=== PATIENT | female | born 1980 | race Caucasian/White ===

== ENCOUNTER 2017-03-04 08:48 | Emergency (ER) | payer BC, MEDICAID, OTHER ==
[~2017-03-04] VITALS: Ht 162.6 cm; Wt 86.5 kg
[~2017-03-04 08:48] MED LIST: CETI10CA PO; FAMO-18 PO; GUAI118L94 PO; GUAI120S26 PO; HYDR-3498 PO; IBUP-1542 PO; LORA-186 PO; MAG355OR15 PO
[2017-03-04 08:52] VITALS: Ht 162.6 cm; Wt 86.5 kg
[2017-03-04] MEDS ORDERED: ONDANSETRON 4 MG INJ IV STA (09:54)
[2017-03-04] MEDS ORDERED: SOD CHLORIDE 0.9% 1,000 ML IV STA (09:54)
[2017-03-04 10:39] LABS: ADD SCAN DIFF NO
[2017-03-04 11:10] LABS: ALBUMIN 4.2 g/dl (3.3-4.9); ALBUMIN/GLOBULIN RATIO 1.27; BILIRUBIN,INDIRECT 0.3 mg/dl (0-1.1); BILIRUBIN,TOTAL 0.3 mg/dl (0.2-1.3); CALCIUM 8.7 mg/dl (8.4-10.2); CREATININE 0.61 mg/dl (0.44-1.00); POTASSIUM 4.3 mmol/L (3.5-5.1); TOTAL PROTEIN 7.5 g/dl (6.1-8.1)
[2017-03-04 11:15] LABS: URINE BLOOD (Dip) POC Trace-lysed (NEGATIVE)
[2017-03-04 11:53] LABS: BASOPHIL # 0.1 10^3/ul (0.0-0.1); BASOPHILS % 0.6 % (0.0-2.0); EOSINOPHILS # 0.2 10^3/ul (0.0-0.5); EOSINOPHILS % 2.1 % (0.0-7.0); HEMATOCRIT 39.8 % (37.0-47.0); HEMOGLOBIN 12.8 g/dl (12.0-16.0); LYMPHOCYTES # 2.7 10^3/ul (0.8-2.9); LYMPHOCYTES % 31.4 % (15.0-51.0); MEAN CORPUSCULAR HEMOGLOBIN 29.7 pg (29.0-33.0); MEAN CORPUSCULAR HGB CONC 32.2 g/dl (32.0-37.0); MEAN CORPUSCULAR VOLUME 92.3 fl (82.0-101.0); MEAN PLATELET VOLUME 10.8 fl (7.4-10.4); MONOCYTE # 0.6 10^3/ul (0.3-0.9); MONOCYTES % 6.8 % (0.0-11.0); NEUTROPHIL # 5.1 10^3/ul (1.6-7.5); NEUTROPHILS % 58.8 % (39.0-77.0); PLATELET COUNT 331 10^3/UL (140-415); RED BLOOD COUNT 4.31 10^6/ul (4.20-5.40); RED CELL DISTRIBUTION WIDTH 13.9 % (11.5-14.5); WHITE BLOOD COUNT 8.7 10^3/ul (4.8-10.8)
--- NOTE | 2017-03-04 12:01 | ERD ---
ER Documentation Chief Complaint Date/Time DATE: 03/04/17 TIME: 12:00 Chief Complaint vomiting x 3 days HPI This a 37-year-old female who presents to the emergency department today complaining of vomiting for the past 3 days. States that she is having difficulty keeping anything down. States she had some mild crampy pain. Denies any diarrhea, fevers or chills. Denies any dysuria. States she smokes cigarettes. Denies any marijuana use. ROS All systems reviewed and are negative except as per history of present illness. Medications Home Meds Active Scripts Electrolyte,Oral (Pedialyte) 1,000 Ml Solution, 100 ML PO Q6 Y for VOMITTING, # 1000 ML Prov:JASON WATERS PA-C 03/04/17 Dicyclomine Hcl* (Bentyl*) 10 Mg Capsule, 10 MG PO QID, #30 CAP Prov:JASON WATERS PA-C 03/04/17 Famotidine* (Pepcid*) 20 Mg Tablet, 20 MG PO BID for 10 Days, TAB Prov:JASON WATERS PA-C 03/04/17 Ondansetron Hcl* (Zofran*) 4 Mg Tablet, 4 MG PO Q6H for NAUSEA AND/OR VOMITING, #30 TAB Prov:JASON WATERS PA-C 03/04/17 Cetirizine Hcl* (Zyrtec*) 10 Mg Capsule, 10 MG PO DAILY, #30 TAB.CHEW Prov:SABRINA SPARKS NP 11/14/15 Ibuprofen* (Motrin*) 600 Mg Tab, 600 MG PO Q6H Y for PAIN AND OR ELEVATED TEMP, #30 TAB Prov:SABRNIA SPARKS NP 11/14/15 Ojrlpurzxuw-E-Dzsfxlxwda Hb* (Guaifenesin* DM Syrup) 120 Ml Syrup, 10 ML PO Q4H Y for COUGH, #120 ML Prov:SABRINA SPARKS NP 11/14/15 Hydrocodone Bit-Acetaminophen* ([place]*) 5-325 Mg Tab, 1 TAB PO Q4H Y for pa, # 10 TAB Prov:SABRINA SPARKS NP 08/30/15 Ibuprofen* (Ibuprofen*) 600 Mg Tablet, 600 MG PO Q6H Y for pa, #30 TAB Prov:ANELALISSONSABRINA CROWDER DIRECTOR MEDICAL 08/30/15 Loratadine* (Claritin*) 10 Mg Tablet, 10 MG PO DAILY, #30 TAB Prov:BRIDGERSABRINA DIRECTOR MEDICAL 08/30/15 Guaifenesin-Codeine Phosphate* (Guaifenesin* with Codeine Liq) 120 Ml Liquid, 5 ML PO Q4H for COUGH, #60 ML Prov:SABRINA SPARKS DIRECTOR MEDICAL 08/30/15 Famotidine* (Pepcid*) 20 Mg Tablet, 20 MG PO BID, #30 TAB Prov:EBER DOAN MD 07/22/15 Mag Hydrox/Al Hydrox/Simeth (Maalox Max Strength Susp) 769 Ml Oral.susp, 2 TSP PO TID, #24 OZ Prov:EBER DOAN MD 07/22/15 Reported Medications [none] Unknown Strength No Conflict Check 11/14/15 [none] Unknown Strength No Conflict Check 08/30/15 Allergies Allergies: Coded Allergies: No Known Allergy (Unverified , 08/30/15) PMhx/Soc History of Surgery: Yes (Laparoscopic uterine surgery) Anesthesia Reaction: No Hx Neurological Disorder: No Hx Respiratory Disorders: No Hx Cardiac Disorders: No Hx Psychiatric Problems: No Hx Miscellaneous Medical Probl: No Hx Alcohol Use: Yes (social) Hx Substance Use: No Hx Tobacco Use: Yes Smoking Status: Current every day smoker Physical Exam Vitals Vital Signs Date Time Temp Pulse Resp B/P Pulse Ox O2 Delivery O2 Flow Rate FiO2 03/04/17 08:52 98.2 83 18 127/70 100 Physical Exam Const: Pleasant, no acute distress Head: Atraumatic Eyes: Normal Conjunctiva ENT: Normal External Ears, Nose and Mouth. Neck: Full range of motion..~ No meningismus. Resp: Clear to auscultation bilaterally Cardio: Regular rate and rhythm, no murmurs Abd: Soft, mild epigastric tenderness, non distended. Normal bowel sounds. No lower abdominal pain. Skin: No petechiae or rashes Neur: Awake and alert Psych: Normal Mood and Affect Result Diagram: 03/04/17 1000 03/04/17 1000 Results 24 hrs Laboratory Tests Test 03/04/17 10:00 5/16/17 11:17 White Blood Count 8.710^3/ul Red Blood Count 4.3110^6/ul Hemoglobin 12.8g/dl Hematocrit 39.8% Mean Corpuscular Volume 92.3fl Mean Corpuscular Hemoglobin 29.7pg Mean Corpuscular Hemoglobin Concent 32.2g/dl Red Cell Distribution Width 13.9% Platelet Count 90448^3/UL Mean Platelet Volume 10.8fl Neutrophils % 58.8% Lymphocytes % 31.4% Monocytes % 6.8% Eosinophils % 2.1% Basophils % 0.6% Nucleated Red Blood Cells % 0.0/100WBC Neutrophils # 5.110^3/ul Lymphocytes # 2.710^3/ul Monocytes # 0.610^3/ul Eosinophils # 0.210^3/ul Basophils # 0.110^3/ul Nucleated Red Blood Cells # 0.010^3/ul Sodium Level 142mmol/L Potassium Level 4.3mmol/L Chloride Level 107mmol/L Carbon Dioxide Level 26mmol/L Anion Gap 13 Blood Urea Nitrogen 12mg/dl Creatinine 0.61mg/dl Glucose Level 98mg/dl Calcium Level 8.7mg/dl Total Bilirubin 0.3mg/dl Direct Bilirubin 0.00mg/dl Indirect Bilirubin 0.3mg/dl Aspartate Amino Transf (AST/SGOT) 27IU/L Alanine Aminotransferase (ALT/SGPT) 32IU/L Alkaline Phosphatase 60IU/L Total Protein 7.5g/dl Albumin 4.2g/dl Globulin 3.30g/dl Albumin/Globulin Ratio 1.27 Lipase 99U/L Bedside Urine pH (LAB) 7.0 Bedside Urine Protein (LAB) Negative Bedside Urine Glucose (UA) Negative Bedside Urine Ketones (LAB) Negative Bedside Urine Blood Trace-lysed Bedside Urine Nitrite (LAB) Negative Bedside Urine Leukocyte Esterase (L Negative Current Medications Medications (Trade) Dose Ordered Sig/Rom Route PRN Reason Start Time Stop Time Status Last Admin Dose Admin Sodium Chloride (NS) 1,000 ml @ 1,000 mls/hr Q1H STAT IV 03/04/17 09:54 03/04/17 10:53 DC 03/04/17 09:59 Ondansetron HCl (Zofran Inj) 4 mg ONCE STAT IV 03/04/17 09:54 03/04/17 09:56 DC 03/04/17 09:59 Procedures/MDM This is a 37-year-old female presents to the emergency department today complaining of vomiting for the past 3 days and difficulty keeping anything down. Given this I did obtain laboratory work as well as a UA. Laboratory work shows no elevated white blood cell count. She is not anemic. Platelets are within normal limits. Electrolytes are within normal limits. Glucose within normal limits. Liver functions normal limits. Lipase within normal limits UA is negative for infection test is negative Patient symptoms at this time is consistent with vomiting. She has mild epigastric pain however low suspicion for acute surgical abdomen, pancreatitis or bacterial cause of vomiting. No evidence to suggest dehydration. Patient was given IV fluids and Zofran here in the emergency department and reported feeling better. She is not actively vomiting. She is sitting up and in no acute distress. Patient was given a prescription for Bentyl, Zofran, Pedialyte. At this time the patient is stable for discharge and outpatient management. Patient should follow up with their PCP in the next 1-2 days. They may return to the emergency department sooner for any persistent or worsening of symptoms. Patient understood and agreed with the plan. Departure Diagnosis: Primary Impression: Nausea and vomiting Vomiting type: unspecified Vomiting Intractability: non-intractable Qualified Code: R11.2 - Non-intractable vomiting with nausea, unspecified vomiting type Condition: JASON Vanegas PA-C March 04, 2017 12:01
[2017-03-04] MEDS ORDERED: ONDA4TAB8 PO (12:03)
[2017-03-04] MEDS ORDERED: FAMO-18 PO (12:03)
[2017-03-04] MEDS ORDERED: DICY10CA60 PO (12:04)
[2017-03-04] MEDS ORDERED: ELEC100080 PO (12:04)
== END 2017-03-04 12:17 | disposition home or self-care (01) ==
LOC: FTE 08:48
DX: R11.2 Nausea with vomiting, unspecified (principal); F17.210 Nicotine dependence, cigarettes, uncomplicated
CPT/HCPCS: 80053; 81003; 83690; 85025; 96361; 96374; J2405; J7030; Z7502

== ENCOUNTER 2017-05-20 18:16 | Inpatient (IN) | payer OTHER ==
[~2017-05-20] VITALS: Ht 165.1 cm; Wt 82.7 kg
[~2017-05-20 18:16] MED LIST changes: +DICY10CA60 PO; +ELEC100080 PO; -FAMO-18 PO; +FAMO-96 PO; +ONDA4TAB8 PO
[2017-05-20] MEDS ORDERED: ONDANSETRON 4 MG INJ IV STA ×2 (18:42→20:14)
[2017-05-20] MEDS ORDERED: HYDROmorphONE 1 MG/ML SYG IV STA ×2 (18:42→20:14)
[2017-05-20] MEDS ORDERED: METHYLPREDNISOLONE 125 MG INJ IV ONE (19:00)
[2017-05-20] MEDS ORDERED: CLINDAMYCIN 900 MG INJ IV ONE (19:00)
[2017-05-20] MEDS ORDERED: CLINDAMYCIN 900 MG INJ IM ONE (19:00)
[2017-05-20] MEDS ORDERED: CLINDAMYCIN 900 MG/D5W (PMX) 50 ML IVPB ONE (19:30)
[2017-05-20 19:40] LABS: CALCIUM 9.3 mg/dl (8.4-10.2); CREATININE 0.71 mg/dl (0.44-1.00); POTASSIUM 3.7 mmol/L (3.5-5.1)
[2017-05-20] MEDS ORDERED: IOHEXOL 300MG/ML 150 ML BTL ONE (19:49)
[2017-05-20] MEDS ORDERED: SOD CHLORIDE 0.9% 100 ML ONE (19:49)
[2017-05-20] MEDS: ACETAMINOPHEN 500 MG TAB PO STA ×2 (20:28→20:29)
[2017-05-20] MEDS ORDERED: CEFEPIME 1GM/50 ML (PMX) 50 ML IVPB STA (20:35)
--- NOTE | 2017-05-20 20:38 | RADRPT ---
PROCEDURE: CT Neck with contrast. CLINICAL INDICATION: Fever, left neck pain. TECHNIQUE: The study was performed utilizing a multislice multidetector CT scanner. Direct spiral 1 mm axial sections were obtained through the neck with the use of with the use of intravenous contr ast material. 100 cc of Omnipaque 300 was utilized. Coronal and sagittal as well as maximal intens ity projection reformations were obtained. The images were reviewed on a PACS workstation. RADIATION DOSE: CTDIvol: 90.8 mGyDLP: 282.5 mGy-cm COMPARISON: No prior studies are available for comparison. FINDINGS: There is a moderate amount of soft tissue swelling in the left supraclavicular region, extending int o the retrosternal region (axial series image [id number]). The soft tissue swelling displaces the left s ubclavian artery posteriorly. There is adequate contrast opacification seen in the descending left internal jugular vein, with focal area of decreased opacification (axial series image 70), with mini mal opacification seen in the left brachiocephalic vein. The superior vena cava and right brachioce phalic vein demonstrates normal opacification. The nasopharynx, oropharynx and hypopharynx are norm al in appearance. There is no tongue base mass. The larynx is normal in appearance. The parotid, submandibular and thyroid glands are normal in appearance. No enlarged cervical lymph nodes are see n. The vascular structures are normal. The paranasal sinuses and orbits are normal. Limited visua lization of the intracranial contents is unremarkable. There are mild degenerative changes of the cervical spine. The lung apices are normal in appearance. IMPRESSION: 1. Moderate soft tissue swelling in the left supraclavicular region, with possible thrombus involvi ng the left brachiocephalic/proximal subclavian vein. Ultrasound of the left upper extremity venous structures is recommended for further evaluation. Given the adjacent soft tissue swelling surround ing the vein, other etiologies including thrombophlebitis or soft tissue infection are not excluded. 2. The remaining neck soft tissues unremarkable. The above findings were discussed with Patient's physician Treva Gutierres by telephone on 2016 8:34:46 PM. RPTAT: HGAS .Igor Rossi MD, MD Date Time Electronically viewed and signed by .Igor Rossi MD, MD on 05/20/2017 20:37 .S/
--- NOTE | 2017-05-20 20:55 | ERA ---
ER Documentation Chief Complaint Date/Time DATE: 05/20/17 TIME: 20:51 Chief [address]K PAIN [facility] Is a 37-year-old female who states she gradually got a worsening pain in her left neck yesterday and this morning woke up with fever and severe left neck pain the neck pain is described as sharp worse with turning of the head is located along the left sternocleidomastoid area. She says she has a very slight sore throat but not significant pain and does not hurt much when she swallows. No cough runny nose headache no photophobia or stiff neck. No GI symptoms denies any trauma or headache either ROS All systems reviewed and are negative except as per history of present illness. Medications Home Meds Active Scripts Electrolyte,Oral (Pedialyte) 1,000 Ml Solution, 100 ML PO Q6 Y for VOMITTING, # 1000 ML Prov:JASON WATERS PA-C 03/04/17 Dicyclomine Hcl* (Bentyl*) 10 Mg Capsule, 10 MG PO QID, #30 CAP Prov:JASON WATERS PA-C 03/04/17 Famotidine* (Pepcid*) 20 Mg Tablet, 20 MG PO BID for 10 Days, TAB Prov:JASON WATERS PA-C 03/04/17 Ondansetron Hcl* (Zofran*) 4 Mg Tablet, 4 MG PO Q6H for NAUSEA AND/OR VOMITING, #30 TAB Prov:JASON WATERS PA-C 03/04/17 Cetirizine Hcl* (Zyrtec*) 10 Mg Capsule, 10 MG PO DAILY, #30 TAB.CHEW Prov:SABRINA SPARKS NP 11/14/15 Ibuprofen* (Motrin*) 600 Mg Tab, 600 MG PO Q6H Y for PAIN AND OR ELEVATED TEMP, #30 TAB Prov:SABRINA SPARKS NP 11/14/15 Jxczykwccni-N-Ezxuimufco Hb* (Guaifenesin* DM Syrup) 120 Ml Syrup, 10 ML PO Q4H Y for COUGH, #120 ML Prov:SABRINA SPARKS NP 11/14/15 Hydrocodone Bit-Acetaminophen* ([place]*) 5-325 Mg Tab, 1 TAB PO Q4H Y for pa, # 10 TAB Prov:SABRINA SPARKS NP 08/30/15 Ibuprofen* (Ibuprofen*) 600 Mg Tablet, 600 MG PO Q6H Y for pa, #30 TAB Prov:SABRINA SPARKS VENEER TAPER 08/30/15 Loratadine* (Claritin*) 10 Mg Tablet, 10 MG PO DAILY, #30 TAB Prov:SABRINA SPARKS VENEER TAPER 08/30/15 Guaifenesin-Codeine Phosphate* (Guaifenesin* with Codeine Liq) 120 Ml Liquid, 5 ML PO Q4H for COUGH, #60 ML Prov:SABRINA SPARKS NP 08/30/15 Famotidine* (Pepcid*) 20 Mg Tablet, 20 MG PO BID, #30 TAB Prov:EBER DOAN MD 07/22/15 Mag Hydrox/Al Hydrox/Simeth (Maalox Max Strength Susp) 769 Ml Oral.susp, 2 TSP PO TID, #24 OZ Prov:EBER DOAN MD 07/22/15 Reported Medications [none] Unknown Strength No Conflict Check 11/14/15 [none] Unknown Strength No Conflict Check 08/30/15 Allergies Allergies: Coded Allergies: No Known Allergy (Unverified , 08/30/15) PMhx/Soc History of Surgery: Yes (Laparoscopic uterine surgery) Anesthesia Reaction: No Hx Neurological Disorder: No Hx Respiratory Disorders: No Hx Cardiac Disorders: No Hx Psychiatric Problems: No Hx Miscellaneous Medical Probl: No Hx Alcohol Use: Yes (social) Hx Substance Use: No Hx Tobacco Use: Yes Smoking Status: Heavy tobacco smoker FmHx Family History: No coronary disease Physical Exam Vitals Vital Signs Date Time Temp Pulse Resp B/P Pulse Ox O2 Delivery O2 Flow Rate FiO2 05/20/17 18:17 101.3 95 20 138/77 99 Physical Exam Const: [Well-developed, well-nourished] Head: [Atraumatic, normocephalic] Eyes: [Normal Conjunctiva, PERRLA, EOMI, normal sclera, no nystagmus] ENT: [Normal External Ears, Nose and Mouth, moist mucus membranes there is only slight erythema to the tonsillar pillars no exudate.] Neck: [Decreased range of motion secondary. No meningismus, no lymphadenopathy, there is extreme tenderness to the left sternocleidomastoid area in the left supra and infraclavicular region] Resp: [Clear to auscultation bilaterally, no wheezing, rhonchi, rales] Cardio: [Regular rate and rhythm, no murmurs, S1 S2 present] Abd: [Soft, non tender x 4, non distended. Normal bowel sounds, no guarding or rebound, no pulsitile abdominal masses or bruits] Skin: [No petechiae or rashes, no ecchymosis , no maculopapular rash] Back: [No midline or flank tenderness] Ext: [No cyanosis, or edema, FROM x 4, normal inspection, neurovascularly intact x 4] Neur: [Awake and alert, STR 5/5 x 4, sensation intact x 4, no focal findings, cerebellum intact] Psych: [Normal Mood and Affect] Result Diagram: 05/20/17 1900 Results 24 hrs Laboratory Tests Test 05/20/17 19:00 Sodium Level 144mmol/L Potassium Level 3.7mmol/L Chloride Level 100mmol/L Carbon Dioxide Level 27mmol/L Anion Gap 21 Blood Urea Nitrogen 12mg/dl Creatinine 0.71mg/dl Glucose Level 83mg/dl Calcium Level 9.3mg/dl Serum HCG, Qualitative NEGATIVE Current Medications Medications (Trade) Dose Ordered Sig/Rom Route PRN Reason Start Time Stop Time Status Last Admin Dose Admin Clindamycin Phosphate (Cleocin) 900 mg ONCE ONCE IM 05/20/17 19:00 05/20/17 19:01 Cancel Hydromorphone HCl (Dilaudid) 1 mg ONCE STAT IV 05/20/17 18:42 05/20/17 18:44 DC 05/20/17 19:07 Ondansetron HCl (Zofran Inj) 4 mg ONCE STAT IV 05/20/17 18:42 05/20/17 18:44 DC 05/20/17 19:07 Methylprednisolone Sodium Succinate (Solu-Medrol) 125 mg ONCE ONCE IV 05/20/17 19:00 05/20/17 19:01 DC 05/20/17 19:07 Clindamycin Phosphate 900 mg 900 mg ONCE ONCE IV 05/20/17 19:00 05/20/17 19:01 DC Clindamycin HCl/ Dextrose (Cleocin 900 Mg/ D5W (Pmx)) 50 ml @ 50 mls/hr ONCE ONCE IVPB 05/20/17 19:30 05/20/17 20:29 DC 05/20/17 19:42 IV Flush 10 ml 10 ml STK-MED ONCE .ROUTE 05/20/17 19:49 05/20/17 19:50 DC 05/20/17 19:59 Sodium Chloride (NS) 100 ml @ ud STK-MED ONCE .ROUTE 05/20/17 19:49 05/20/17 19:50 DC 05/20/17 19:59 Iohexol (Omnipaque 300mg/ ml) 150 ml STK-MED ONCE .ROUTE 05/20/17 19:49 05/20/17 19:50 DC 05/20/17 19:59 Hydromorphone HCl (Dilaudid) 1 mg ONCE STAT IV 05/20/17 20:14 05/20/17 20:15 DC 05/20/17 20:18 Ondansetron HCl (Zofran Inj) 4 mg ONCE STAT IV 05/20/17 20:14 05/20/17 20:15 DC 05/20/17 20:18 Acetaminophen (Tylenol Tab) 1,000 mg ONCE STAT PO 05/20/17 20:23 05/20/17 20:24 DC Enoxaparin Sodium 80 mg 80 mg ONCE SC 05/20/17 21:00 Cefepime HCl (Maxipime 1gm/50 ml (Pmx)) 50 ml @ 100 mls/hr ONCE STAT IVPB 05/20/17 20:35 05/20/17 21:04 Procedures/MDM PROCEDURE: CT Neck with contrast. CLINICAL INDICATION: Fever, left neck pain. TECHNIQUE: The study was performed utilizing a multislice multidetector CT scanner. Direct spiral 1 mm axial sections were obtained through the neck with the use of with the use of intravenous contrast material. 100 cc of Omnipaque 300 was utilized. Coronal and sagittal as well as maximal intensity projection reformations were obtained. The images were reviewed on a PACS workstation. RADIATION DOSE: CTDIvol: 90.8 mGy DLP: 282.5 mGy-cm COMPARISON: No prior studies are available for comparison. FINDINGS: There is a moderate amount of soft tissue swelling in the left supraclavicular region, extending into the retrosternal region (axial series image 62-71). The soft tissue swelling displaces the left subclavian artery posteriorly. There is adequate contrast opacification seen in the descending left internal jugular vein, with focal area of decreased opacification (axial series image 70), with minimal opacification seen in the left brachiocephalic vein. The superior vena cava and right brachiocephalic vein demonstrates normal opacification. The nasopharynx, oropharynx and hypopharynx are normal in appearance. There is no tongue base mass. The larynx is normal in appearance. The parotid, submandibular and thyroid glands are normal in appearance. No enlarged cervical lymph nodes are seen. The vascular structures are normal. The paranasal sinuses and orbits are normal. Limited visualization of the intracranial contents is unremarkable. There are mild degenerative changes of the cervical spine. The lung apices are normal in appearance. IMPRESSION: 1. Moderate soft tissue swelling in the left supraclavicular region, with possible thrombus involving the left brachiocephalic/proximal subclavian vein. Ultrasound of the left upper extremity venous structures is recommended for further evaluation. Given the adjacent soft tissue swelling surrounding the vein, other etiologies including thrombophlebitis or soft tissue infection are not excluded. 2. The remaining neck soft tissues unremarkable. The above findings were discussed with Patient's physician Treva Lindsay by telephone on 05/20/2017 8:34:46 PM. RPTAT: HGAS .Igor Rossi MD, Date Time Electronically viewed and signed by .Igor Rossi MD, MD on 05/20/2017 20: 37 .S/ CC: TREVA LINDSAY DO Patient has been given clindamycin and cefepime. Blood cultures have been drawn. She is also been on Lovenox subcu for DVT prophylaxis Getting an ultrasound of the left upper extremity including the left subclavian and brachiocephalic veins. This is not definitive will need to get MRV Patient has a fever with a clot in her left neck with significant stranding of the soft tissue this is likely consistent with a thrombophlebitis or other deep soft tissue infection. We will admit for IV antibiotic therapy and pain control Critical Care Time: 35 minutes Treatments/Evaluations: Close monitoring and treatment of unstable vital signs, cardiorespiratory, and neurologic status, while maintaining tight balance of fluid, respiratory, and cardiac interventions. This time includes discussing the case with the patient and the patient's family. This time does not include all procedures stated elsewhere in this record. This time also includes reviewing old records, labs and radiological studies. This time includes examining and re-examining the patient. Additionally, this time also includes arranging care with admitting and consulting physicians. Departure Diagnosis: Primary Impression: DVT (deep venous thrombosis) Qualified Code: I82.90 - Acute deep vein thrombosis (DVT) of non-extremity vein Additional Impression: Septic thrombophlebitis of neck Condition: Stable TREVA LINDSAY DO May 20, 2017 20:55
[2017-05-20] MEDS ORDERED: SOD CHLORIDE 0.9% 1,000 ML IV SCH (20:56)
[2017-05-20] MEDS ORDERED: ENOXAPARIN 80 MG/0.8 ML SYG SC SCH (21:00)
[2017-05-20] MEDS ORDERED: ACETAMINOPHEN 325 MG TAB PO PRN (21:00)
[2017-05-20] MEDS ORDERED: ONDANSETRON 4 MG INJ IV PRN (21:00)
--- NOTE | 2017-05-20 21:27 | RADRPT ---
PROCEDURE: Left upper extremity venous ultrasound CLINICAL INDICATION: Left arm pain and swelling. Deep venous thrombosis. TECHNIQUE: Johnson scale, color doppler, spectral doppler ultrasound imaging of the venous system of the left upper extremity. Augmentation maneuvers were utilized. COMPARISON: No prior studies are available for comparison. FINDINGS: LEFT: Internal jugular vein: Patent. Subclavian vein: Patent. Axillary vein: Patent. Brachial vein: Patent. Basilic vein: Patent. Cephalic vein: Patent. Radial vein: Patent. Ulnar vein: Patent. IMPRESSION: No evidence of a deep vein thrombosis involving the left upper extremity. RPTAT: AADD .Alan Valera MD, MD Date Time Electronically viewed and signed by .Alan Valera MD, on 05/20/2017 21:27 .B/
[2017-05-20 21:32] LABS: BASOPHILS % 0.2 % (0.0-2.0); EOSINOPHILS # 0.1 10^3/ul (0.0-0.5); EOSINOPHILS % 0.8 % (0.0-7.0); HEMATOCRIT 38.7 % (37.0-47.0); HEMOGLOBIN 12.7 g/dl (12.0-16.0); LYMPHOCYTES % 19.9 % (15.0-51.0); MEAN CORPUSCULAR HGB CONC 32.8 g/dl (32.0-37.0); MEAN CORPUSCULAR VOLUME 91.3 fl (82.0-101.0); MEAN PLATELET VOLUME 11.7 fl (7.4-10.4); MONOCYTES % 6.2 % (0.0-11.0); NEUTROPHIL # 11.1 10^3/ul (1.6-7.5); NEUTROPHILS % 72.4 % (39.0-77.0); PLATELET COUNT 333 10^3/UL (140-415); RED BLOOD COUNT 4.24 10^6/ul (4.20-5.40); RED CELL DISTRIBUTION WIDTH 15.2 % (11.5-14.5); WHITE BLOOD COUNT 15.3 10^3/ul (4.8-10.8)
[2017-05-20 21:51] VITALS: TEMP 99.3
[2017-05-20 22:15] VITALS: BP 97/51; PULSE 73; RESP 20; Ht 165.1 cm; Wt 82.7 kg
[2017-05-20 22:20] VITALS: PULSE 73
[2017-05-20 22:37] LABS: ALBUMIN 4.5 g/dl (3.3-4.9); ALBUMIN/GLOBULIN RATIO 1.28; BILIRUBIN,INDIRECT 0.5 mg/dl (0-1.1); BILIRUBIN,TOTAL 0.5 mg/dl (0.2-1.3); CALCIUM 9.3 mg/dl (8.4-10.2); CREATININE 0.69 mg/dl (0.44-1.00); POTASSIUM 3.7 mmol/L (3.5-5.1)
[2017-05-20] MEDS: morphine 4 MG/ML VIAL IV PRN (23:05)
[2017-05-21] VITALS (13 sets, daily range): BP systolic 90–116; BP diastolic 51–62; PULSE 55–74; RESP 17–19
[2017-05-21] MEDS ORDERED: ONDANSETRON 4 MG INJ IV PRN
[2017-05-21] MEDS: morphine 4 MG/ML VIAL IV PRN ×6 (03:27→23:23)
[2017-05-21 07:26] LABS: BASOPHILS % 0.1 % (0.0-2.0); HEMATOCRIT 35.8 % (37.0-47.0); HEMOGLOBIN 11.6 g/dl (12.0-16.0); LYMPHOCYTES # 1.8 10^3/ul (0.8-2.9); LYMPHOCYTES % 10.2 % (15.0-51.0); MEAN CORPUSCULAR HEMOGLOBIN 29.2 pg (29.0-33.0); MEAN CORPUSCULAR HGB CONC 32.4 g/dl (32.0-37.0); MEAN CORPUSCULAR VOLUME 90.2 fl (82.0-101.0); MEAN PLATELET VOLUME 11.1 fl (7.4-10.4); MONOCYTE # 0.5 10^3/ul (0.3-0.9); MONOCYTES % 2.7 % (0.0-11.0); NEUTROPHIL # 15.5 10^3/ul (1.6-7.5); NEUTROPHILS % 86.5 % (39.0-77.0); PLATELET COUNT 311 10^3/UL (140-415); RED BLOOD COUNT 3.97 10^6/ul (4.20-5.40); WHITE BLOOD COUNT 17.9 10^3/ul (4.8-10.8)
[2017-05-21 07:54] LABS: ALBUMIN/GLOBULIN RATIO 1.33; BILIRUBIN,INDIRECT 0.2 mg/dl (0-1.1); BILIRUBIN,TOTAL 0.2 mg/dl (0.2-1.3); CREATININE 0.73 mg/dl (0.44-1.00); MAGNESIUM 1.8 mg/dl (1.7-2.5); PHOSPHORUS 2.6 mg/dl (2.5-4.9)
--- NOTE | 2017-05-21 09:13 | HP ---
Date/Time of Note Date/Time of Note DATE: 05/21/17 TIME: 09:05 Assessment/Plan VTE Prophylaxis VTE Prophylaxis Intervention: LMWH Lines/Catheters IV [facility] Peripheral IV Urinary Cath still in place: No Assessment/Plan Assessment/Plan 1. Possible thrombus involving the left brachiocephalic/proximal subclavian vein: -Patient was given therapeutic dose of Lovenox while she was in the ER. -will continue anticoagulation. Will place a vascular surgery consult. 2. Left-sided neck pain: -Patient reported having had sex with her arm and neck in a certain position which may have contributed to her pain -We will provide pain medication as needed. See also above for further treatment plan. 3. Systemic inflammatory response syndrome: As evidenced by fever and leukocytosis. - This could likely be secondary to thrombosis, but will do infectious workup. Patient also did report sore throat so it may be possible that her left neck pain has an infectious etiology. - She will be placed on Rocephin for now HPI/ROS Admit Date/Time Admit Date/Time May 20, 2017 at 20:56 Hx of Present Illness This is a 37-year-old female with no significant past medical history who presented to the emergency department complaining of left neck pain. She said she woke up yesterday with left neck pain which had been progressively getting worse. She is able to turn her head to the right but she is not able to turn her head to the left completely because of pain. She also reported subjective fever and a sore throat. Denied difficulty swallowing or shortness of breath. In the ER, she was febrile with a temperature of 101.3 and a WBC of 15,000. CT of the neck with contrast was done with the following results: Moderate soft tissue swelling in the left supraclavicular region, with possible thrombus involving the left brachiocephalic/proximal subclavian vein. Ultrasound of the left upper extremity venous structures is recommended for further evaluation. Given the adjacent soft tissue swelling surrounding the vein, other etiologies including thrombophlebitis or soft tissue infection are not excluded. The remaining neck soft tissues unremarkable. Left upper extremity ultrasound was done which was negative for DVT. Patient was given therapeutic dose of Lovenox for CT of the neck finding. PMH/Family/Social Social History Smoking Status: Current every day smoker Exam/Review of Systems Vital Signs Vitals Vital Signs Date Time Temp Pulse Resp B/P Pulse Ox O2 Delivery O2 Flow Rate FiO2 05/21/17 08:07 97.8 56 17 96/51 99 05/20/17 22:15 Room Air Intake and Output 05/20/17 05/20/17 05/21/17 15:00 23:00 07:00 Intake Total 750 ml Balance 750 ml Exam Constitutional: alert, oriented, well developed Head: atraumatic, normocephalic Eyes: EOMI, PERRL Neck: other (Left neck tenderness. Turning her head to the left side elicits pain and also range of motion is limited due to pain) Respiratory: clear to auscultation, normal air movement Cardiovascular: nl pulses, regular rate and rhythm Gastrointestinal: non-tender, soft Extremities: normal pulses Labs Result Diagram: 05/21/17 0658 05/21/17 0658 Medications Medications Current Medications Sodium Chloride (NS) 1,000 ml @ 80 mls/hr [id number] IV Last administered on 22:30; Admin Dose 80 MLS/HR; Start 05/20/17 at 20:56; Stop 05/21/17 at 09:25 Morphine Sulfate (morphine) 2 mg Q4H PRN IV PAIN Last administered on 05/21/17 08:21; Admin Dose 2 MG; Start 05/20/17 at 23:00 Ondansetron HCl (Zofran Inj) 4 mg Q6H PRN IV NAUSEA AND/OR VOMITING; Start 05/21 at 00:00 DORYS OLSON MD May 21, 2017 09:13
[2017-05-21] MEDS: ENOXAPARIN 100 MG/ML SYG SC SCH ×2 (10:35→20:59)
[2017-05-21] MEDS: CEFTRIAXONE 1 GM/50 ML (PMX) 50 ML IVPB SCH (12:16)
[2017-05-21] MEDS ORDERED: SOD CHLORIDE 0.9% 100 ML ONE (12:48)
[2017-05-21] MEDS ORDERED: IOHEXOL 100 ML ONE (12:48)
[2017-05-21 13:16] LABS: ADD UMIC YES; UR ASCORBIC ACID NEGATIVE (NEGATIVE); UR BILIRUBIN (Dip) NEGATIVE (NEGATIVE); UR BLOOD (Dip) 1+ mg/dL (NEGATIVE); UR CLARITY SLIGHTLY CLOUDY (CLEAR); UR COLOR YELLOW (YELLOW); UR GLUCOSE (Dip) 3+ mg/dL (NEGATIVE); UR KETONES (Dip) NEGATIVE (NEGATIVE); UR LEUKOCYTE ESTERASE (Dip) NEGATIVE Leu/ul (NEGATIVE); UR NITRITE (Dip) NEGATIVE (NEGATIVE); UR RBC 10 /HPF (0-5); UR SPECIFIC GRAVITY (Dip) 1.036 (1.003-1.030); UR SQUAMOUS EPITHELIAL CELL MODERATE /HPF (FEW); UR TOTAL PROTEIN (Dip) NEGATIVE (NEGATIVE); UR UROBILINOGEN (Dip) NEGATIVE (NEGATIVE)
--- NOTE | 2017-05-21 13:40 | RADRPT ---
PROCEDURE: CTA Neck. CLINICAL INDICATION: Carotid injury. Left Thrombophlebitis TECHNIQUE: The study was performed utilizing a multidetector CT scanner. Direct spiral 1 mm axial sections were obtained through the neck with the use of 90 ml Omnipaque 350 intravenous contrast ma terial. Coronal and sagittal as well as maximal intensity projection reformations were obtained.CTD I: 72.11 mGy and DLP: 608.4 mGy.cm.One or more of the following dose reduction techniques were utili zed: Automated exposure control, adjustment of the mA and/or kV according to patient size, use of i terative reconstruction technique. COMPARISON: CT neck soft tissues and left upper extremity Doppler venous evaluation from 7. The venous Doppler demonstrate no evidence of left internal jugular or subclavian vein thrombosis . FINDINGS: Image degradation secondary to patient motion limits evaluation of the aortic arch and proximal neck vessels. There is redemonstration of nonspecific soft tissue stranding and fullness in the left sup raclavicular region with the left subclavian vein displacing the left subclavian artery posteriorly as described in the CT neck soft tissues. No evidence of venous thrombosis was identified recently performed ultrasound. Aortic arch: The aortic arch is normal in caliber. Normal appearance of the origin of the great vessels. Common carotid arteries: The common carotid arteries are patent and normal in caliber bilaterally. Internal carotid arteries: LORA/ECA: Normal appearance of the internal carotid artery bulb. The distal internal carotid artery is patent and normal in caliber. No evidence of hemodynamically significant stenosis. External carotid tulio ry and its branches are normal patent and normal in caliber. LICA/ECA : Normal appearance of the internal carotid artery bulb. The distal internal carotid artery is patent and normal in caliber. No evidence of hemodynamically significant stenosis. External carotid tulio ry and its branches are normal patent and normal in caliber. Vertebral arteries: The vertebral arteries are delete patent and normal in caliber. Dominant right vertebral artery. No evidence of vascular occlusion or dissection. IMPRESSION: 1. Unremarkable CT angiogram of the neck vessels. The study is limited due to patient motion and im age degradation. 2. Redemonstration of soft tissue stranding in the left supraclavicular region suggestive of inflam matory or infiltrative process. RPTAT:AAJJ Saige Shni Physician Date Time Electronically viewed and signed by Saige Shin Physician on 05/21/2017 13:40 KATE/
[2017-05-21] MEDS: SOD CHLORIDE 0.9% 1,000 ML IV SCH ×2 (14:30→17:48)
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
[2017-05-22] VITALS (10 sets, daily range): BP systolic 104–140; BP diastolic 54–94; PULSE 56–70; RESP 17–20
[2017-05-22] MEDS: morphine 4 MG/ML VIAL IV PRN ×7 (01:24→20:36)
[2017-05-22 07:21] LABS: ABNORMAL IP MESSAGE 1; BASOPHIL # 0.1 10^3/ul (0.0-0.1); BASOPHILS % 0.3 % (0.0-2.0); EOSINOPHILS # 0.1 10^3/ul (0.0-0.5); EOSINOPHILS % 0.2 % (0.0-7.0); HEMATOCRIT 33.8 % (37.0-47.0); HEMOGLOBIN 10.8 g/dl (12.0-16.0); LYMPHOCYTES # 6.6 10^3/ul (0.8-2.9); LYMPHOCYTES % 26.7 % (15.0-51.0); MEAN CORPUSCULAR HEMOGLOBIN 29.3 pg (29.0-33.0); MEAN CORPUSCULAR VOLUME 91.6 fl (82.0-101.0); MEAN PLATELET VOLUME 11.4 fl (7.4-10.4); MONOCYTE # 1.4 10^3/ul (0.3-0.9); MONOCYTES % 5.8 % (0.0-11.0); NEUTROPHIL # 16.3 10^3/ul (1.6-7.5); NEUTROPHILS % 66.5 % (39.0-77.0); PLATELET COUNT 283 10^3/UL (140-415); RED BLOOD COUNT 3.69 10^6/ul (4.20-5.40); RED CELL DISTRIBUTION WIDTH 15.3 % (11.5-14.5); WHITE BLOOD COUNT 24.5 10^3/ul (4.8-10.8)
[2017-05-22 07:25] LABS: POSITIVE DIFF @See below
[2017-05-22 07:53] LABS: CALCIUM 8.6 mg/dl (8.4-10.2); CREATININE 0.65 mg/dl (0.44-1.00); MAGNESIUM 1.9 mg/dl (1.7-2.5); PHOSPHORUS 3.3 mg/dl (2.5-4.9); POTASSIUM 3.7 mmol/L (3.5-5.1)
[2017-05-22] MEDS: ENOXAPARIN 100 MG/ML SYG SC SCH (08:49)
[2017-05-22] MEDS: CEFTRIAXONE 1 GM/50 ML (PMX) 50 ML IVPB SCH (10:21)
[2017-05-22] MEDS ORDERED: APIX5TAB PO (12:36)
--- NOTE | 2017-05-22 14:00 | PN ---
Date/Time of Note Date/Time of Note DATE: 05/22/17 TIME: 13:59 Assessment/Plan VTE Prophylaxis VTE Prophylaxis Intervention: LMWH Lines/Catheters IV [facility]from [facility]): Peripheral IV Urinary Cath still in place: No Assessment/Plan Chief Complaint/Hosp Course Patient is a 37-year-old female with no significant past medical history who presents to [facility] for neck pain found to have thrombus in the left brachiocephalic and proximal subclavian vein. Assessment and problem list Thrombus and left brachiocephalic proximal subclavian vein Left sided neck pain Leukocytosis Fever, resolved Plan -Vascular surgery has been consulted, recommends minimum 3 months anticoagulation. Confirmed with pharmacy the patient's insurance does cover Eliquis. We will start her Eliquis tonight -Continue on antibiotics, white count increasing, likely secondary to reactive inflammation -CT angiogram of the neck negative for carotid dissection -Severe neck pain. Continue morphine, adding gabapentin and Flexeril -Follow-up with a.m. labs Problems: Subjective 24 Hr Interval Summary Free Text/Dictation severe neck pain still Exam/Review of Systems Vital Signs Vitals Vital Signs Date Time Temp Pulse Resp B/P Pulse Ox O2 Delivery O2 Flow Rate FiO2 05/22/17 11:41 97.8 75 17 140/94 99 05/20/17 22:15 Room Air Intake and Output 05/21/17 05/21/17 05/22/17 15:00 23:00 07:00 Intake Total 50 ml 800 ml 1350 ml Balance 50 ml 800 ml 1350 ml Exam Physical exam General: Patient is laying in bed and answers questions appropriately Mentation: Patient is alert and oriented 4, Head: Normocephalic atraumatic Eyes: EOMI, pupils reactive to light Neck: tight left neck muscles. tender to palpation in left side. Respiratory: Clear to auscultation bilaterally Cardiovascular: regular rate, no obvious murmurs Gastrointestinal: non-tender to palpation, bowel sounds heard. Neurological: Moves all extremities spontaneously Skin: No new skin lesions Results Result Diagram: 05/22/17 0659 05/22/17 0659 Results 24 hrs Laboratory Tests Test 05/22/17 06:59 White Blood Count 24.5 #H Red Blood Count 3.69 L Hemoglobin 10.8 L Hematocrit 33.8 L Mean Corpuscular Volume 91.6 Mean Corpuscular Hemoglobin 29.3 Mean Corpuscular Hemoglobin Concent 32.0 Red Cell Distribution Width 15.3 H Platelet Count 283 Mean Platelet Volume 11.4 H Neutrophils % 66.5 Lymphocytes % 26.7 Monocytes % 5.8 Eosinophils % 0.2 Basophils % 0.3 Nucleated Red Blood Cells % 0.0 Neutrophils # 16.3 H Lymphocytes # 6.6 H Monocytes # 1.4 H Eosinophils # 0.1 Basophils # 0.1 Nucleated Red Blood Cells # 0.0 Sodium Level 144 Potassium Level 3.7 Chloride Level 105 Carbon Dioxide Level 28 Anion Gap 15 Blood Urea Nitrogen 13 Creatinine 0.65 Glucose Level 101 # Calcium Level 8.6 Phosphorus Level 3.3 Magnesium Level 1.9 Medications Medications Current Medications Ondansetron HCl 4 mg 4 mg Q6H PRN IV NAUSEA AND/OR VOMITING; Start 05/21/17 at 00:00 Ceftriaxone Sodium (Rocephin) 50 ml @ 100 mls/hr Q24H IVPB Last administered on 05/22/17 10:21; Admin Dose 100 MLS/HR; Start 05/21/17 at 11:00 Morphine Sulfate (morphine) 2 mg Q2H PRN IV SEVERE PAIN LEVEL 7-10 Last administered on 05/22/17 11:16; Admin Dose 2 MG; Start 05/21/17 at 19:00 Gabapentin (Neurontin) 300 mg TID PO ; Start 05/22/17 at 13:00 Cyclobenzaprine HCl (Flexeril) 10 mg TID PO ; Start 05/22/17 at 13:00 Apixaban (Eliquis) 10 mg BID PO ; Start 05/22/17 at 21:00; Stop 05/29/17 at 20:59 EBER DOVER May 22, 2017 14:00
[2017-05-22] MEDS: GABAPENTIN 300 MG CAP PO SCH ×2 (14:07→20:35)
[2017-05-22] MEDS: CYCLOBENZAPRINE 10 MG TAB PO SCH ×2 (14:07→20:35)
--- NOTE | 2017-05-22 15:41 | PN ---
Date/Time of Note Date/Time of Note DATE: 05/22/17 TIME: 15:35 Assessment/Plan Lines/Catheters IV Catheter Type (from Nrsg): Peripheral IV Love in Place (from Nrsg): No Assessment/Plan Chief Complaint/Hosp Course -Acute DVT of the left brachiocephalic vein and the left subclavian vein, with blunt injury to the left side of the neck: The patient may have sustained a blunt injury to the left side of the neck which could have been from a provoking episode -Recommend anticoagulation for the course of 3 months. -The patient has reported that she has been having some episodes of blurry vision. Recommend hypercoagulable workup -Complete a course of antibiotics for neck cellulitis for 1 week -Optimize vascular status (BP meds, diet, nutrition, exercise,sugar control, weight loss). -Discussed the findings, plan and management with the patient and she understands. -Thank you for allowing us to partake in the care of your patient. Please call with any questions. Problems: Subjective 24 Hr Interval Summary no new vascular events overnight, neck pain improved and controlled Exam/Review of Systems Vital Signs Vitals Vital Signs Date Time Temp Pulse Resp B/P Pulse Ox O2 Delivery O2 Flow Rate FiO2 05/22/17 14:40 58 05/22/17 11:41 97.8 17 140/94 99 05/20/17 22:15 Room Air Intake and Output 05/21/17 05/21/17 05/22/17 15:00 23:00 07:00 Intake Total 50 ml 800 ml 1350 ml Balance 50 ml 800 ml 1350 ml Exam Free Text/Dictation GENERAL APPEARANCE: Alert and oriented x3. NECK: Supple. Left-sided neck tenderness along the sternocleidomastoid muscle with some erythema improved CARDIAC: S1 and S2 present. CTAB ABDOMEN: Soft, nontender and nondistended. Bowel sounds positive. EXTREMITIES: Lower extremities palpable femoral pulse. Palpable pedal pulse. Motor sensory intact. Capillary refill 2 to 3 seconds. Upper extremity palpable brachial pulse. Motor sensory intact. Capillary refill 2 seconds. Results Result Diagram: 05/22/17 0659 05/22/17 0659 DEBORA LANDAVERDE MD May 22, 2017 15:41
[2017-05-22] MEDS: APIXABAN 5 MG TABLET PO SCH (20:35)
[2017-05-23] VITALS (8 sets, daily range): BP systolic 101–124; BP diastolic 59–85; PULSE 57–61; RESP 17–19
[2017-05-23] MEDS: morphine 4 MG/ML VIAL IV PRN ×2 (01:44→05:05)
[2017-05-23 08:37] LABS: BASOPHIL # 0.1 10^3/ul (0.0-0.1); BASOPHILS % 0.5 % (0.0-2.0); EOSINOPHILS # 0.2 10^3/ul (0.0-0.5); EOSINOPHILS % 1.4 % (0.0-7.0); LYMPHOCYTES % 45.5 % (15.0-51.0); MEAN CORPUSCULAR HEMOGLOBIN 29.7 pg (29.0-33.0); MEAN CORPUSCULAR HGB CONC 32.4 g/dl (32.0-37.0); MEAN CORPUSCULAR VOLUME 91.9 fl (82.0-101.0); MEAN PLATELET VOLUME 11.4 fl (7.4-10.4); MONOCYTE # 0.7 10^3/ul (0.3-0.9); MONOCYTES % 6.7 % (0.0-11.0); NEUTROPHILS % 45.7 % (39.0-77.0); PLATELET COUNT 286 10^3/UL (140-415); RED CELL DISTRIBUTION WIDTH 14.9 % (11.5-14.5); WHITE BLOOD COUNT 10.9 10^3/ul (4.8-10.8)
[2017-05-23] MEDS: GABAPENTIN 300 MG CAP PO SCH ×2 (08:52→12:27)
[2017-05-23] MEDS: APIXABAN 5 MG TABLET PO SCH (08:52)
[2017-05-23] MEDS: CYCLOBENZAPRINE 10 MG TAB PO SCH ×2 (08:52→12:27)
[2017-05-23 09:04] LABS: CALCIUM 8.4 mg/dl (8.4-10.2); CREATININE 0.66 mg/dl (0.44-1.00); MAGNESIUM 1.8 mg/dl (1.7-2.5); PHOSPHORUS 4.2 mg/dl (2.5-4.9)
[2017-05-23] MEDS: CEFTRIAXONE 1 GM/50 ML (PMX) 50 ML IVPB SCH (10:42)
[2017-05-23] MEDS ORDERED: METH750T93 PO (12:12)
[2017-05-23] MEDS ORDERED: DOXY100T20 PO (12:12)
[2017-05-23] MEDS ORDERED: OXYC-209 PO (12:12)
[2017-05-23] MEDS ORDERED: GABA300C16 PO (12:12)
--- NOTE | 2017-05-23 12:19 | PDOCDIS ---
Discharge Instructions CONDITION Patient Condition: Stable ACTIVITY: Activity Restrictions: Slowly Increase Activity FOLLOW UP/APPOINTMENTS Follow-up Plan 1. Please take eliquis 10mg twice a day, for 7 days, THEN take eliquis 5mg twice a day for at least 3 months 2. Follow up with your assigned primary care provider that your insurance company assigned to you as soon as possible. 3. Finish doxycycline antibiotics for neck inflammation 4. Obtain referral to see a legal mediator/oncologist for hypercoagulable workup given history of miscarriages 4. Only take pain medication/muscle spasm medication as prescribed. 5. Return to the ED if pain/symptoms become worse. EBER DOVER May 23, 2017 12:19
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
== END 2017-05-23 15:27 | disposition home or self-care (01) | DRG 301 ==
LOC: FTE 18:16 → MS4 20:56
PROVIDERS: ADMIT Internal Medicine; ATTEND Internal Medicine
DX: I82.B19 Acute embolism and thrombosis of unspecified subclavian vein (principal); D72.829 Elevated white blood cell count, unspecified; I82.290 Acute embolism and thrombosis of other thoracic veins; M54.2 Cervicalgia; M62.838 Other muscle spasm
CPT/HCPCS: 70491; 70498; 80048; 80053; 81001; 83735; 84100; 84703; 85025; 87040; 87086; 93971; 96372; 96374; 96375; 96376; J0692; J0696; J1170; J1650; J2270; J2405; J2930; J7030; Q9967